=== PATIENT | female | born 1975 | race Hispanic/Latino ===

== ENCOUNTER 2018-12-22 23:51 | Emergency (ER) | payer BC, OTHER ==
[2018-12-23] MEDS ORDERED: ONDANSETRON HCL 4 MG/2 ML VIAL ONE (00:16)
[2018-12-23] MEDS ORDERED: MORPHINE SULFATE 4 MG/1ML SYG ONE (00:17)
[2018-12-23 00:22] LABS: BASOPHILS % (AUTO) 0.9 % (0.0-5.0); EOSINOPHILS % (AUTO) 2.7 % (0.0-8.0); HEMATOCRIT 37.6 % (36-48); LYMPHOCYTES % (AUTO) 27.9 % (21.0-51.0); MEAN CORPUSCULAR HEMOGLOBIN 32.8 pg (27.0-33.0); MEAN CORPUSCULAR HGB CONC 34.7 g/dL (32.0-36.0); MEAN CORPUSCULAR VOLUME 94.3 fL (79-99); MONOCYTES % (AUTO) 7.7 % (3.0-13.0); NEUTROPHILS % (AUTO) 60.8 % (40.0-77.0); PLATELET COUNT (AUTO) 253 K/uL (130-400); RED BLOOD CELL COUNT(AUTO) 3.99 MIL/uL (4.00-5.50); RED CELL DISTRIBUTION WIDTH 12.5 % (11.0-15.5); WHITE BLOOD COUNT (AUTO) 10.6 K/uL (4.8-10.8)
[2018-12-23 00:23] LABS: APPEARANCE,URINE Cloudy (CLEAR); BILIRUBIN,URINE Negative (NEGATIVE); COLOR,URINE Yellow (YELLOW); GLUCOSE, URINE (UA) Negative (NEGATIVE); KETONES,URINE Negative (NEGATIVE); LEUKOCYTE ESTERASE ,URINE Small (NEGATIVE); NITRATE,URINE Negative (NEGATIVE); OCCULT BLOOD,URINE Small (NEGATIVE); PH,URINE 7.5 (5.0-8.0); PROTEIN,URINE Negative (NEGATIVE)
[2018-12-23 00:40] LABS: CREATININE 0.8 mg/dL (0.5-1.5); POTASSIUM 3.9 mmol/L (3.5-5.1)
[2018-12-23] MEDS ORDERED: SODIUM CHLORIDE 0.9% 1000ML 1,000 ML IV ONE (00:44)
[2018-12-23 00:56] LABS: ALBUMIN 3.6 g/dL (3.5-5.0); BILIRUBIN,TOTAL 0.3 mg/dL (0.2-1.0); TOTAL PROTEIN, SERUM 7.2 g/dL (6.0-8.3)
[2018-12-23 01:25] LABS: BACTERIA,URINE Moderate /HPF (None Seen); RBC,URINE 0-1 /HPF (0-1)
[2018-12-23] MEDS ORDERED: KETOROLAC TROMETHAMINE 30MG/ML ONE (01:46)
== END 2018-12-23 03:32 | disposition home or self-care (01) ==
LOC: EDH 23:51
DX: N20.0 Calculus of kidney (principal); Z90.49 Acquired absence of other specified parts of digestive tract; Z90.710 Acquired absence of both cervix and uterus
CPT/HCPCS: 36415; 71045; 74176; 80053; 81001; 82550; 83690; 84484; 85025; 93005; 96374; 96375; 99285; J1885; J2270; J2405; J7030

== ENCOUNTER 2018-12-25 21:20 | Inpatient (IN) | payer BC ==
[~2018-12-25] VITALS: Ht 157.5 cm; Wt 93.8 kg
[2018-12-25] MEDS ORDERED: ONDANSETRON HCL 4 MG/2 ML VIAL ONE (22:11)
[2018-12-25] MEDS ORDERED: KETOROLAC TROMETHAMINE 30MG/ML ONE (22:11)
[2018-12-25] MEDS ORDERED: MORPHINE SULFATE 4 MG/1ML SYG ONE (22:11)
[2018-12-25 22:28] LABS: BASOPHILS % (AUTO) 0.3 % (0.0-5.0); EOSINOPHILS % (AUTO) 1.1 % (0.0-8.0); HEMATOCRIT 37.2 % (36-48); LYMPHOCYTES % (AUTO) 16.2 % (21.0-51.0); MEAN CORPUSCULAR HEMOGLOBIN 32.7 pg (27.0-33.0); MEAN CORPUSCULAR HGB CONC 35.1 g/dL (32.0-36.0); MEAN CORPUSCULAR VOLUME 93.4 fL (79-99); NEUTROPHILS % (AUTO) 76.4 % (40.0-77.0); PLATELET COUNT (AUTO) 249 K/uL (130-400); RED BLOOD CELL COUNT(AUTO) 3.98 MIL/uL (4.00-5.50); RED CELL DISTRIBUTION WIDTH 12.9 % (11.0-15.5); WHITE BLOOD COUNT (AUTO) 11.3 K/uL (4.8-10.8)
[2018-12-25 22:30] LABS: CREATININE 0.8 mg/dL (0.5-1.5); POTASSIUM 4.1 mmol/L (3.5-5.1)
[2018-12-25 22:35] LABS: ALBUMIN 3.7 g/dL (3.5-5.0); BILIRUBIN,TOTAL 0.5 mg/dL (0.2-1.0); TOTAL PROTEIN, SERUM 7.3 g/dL (6.0-8.3)
[2018-12-25 22:36] LABS: APPEARANCE,URINE Clear (CLEAR); BILIRUBIN,URINE Negative (NEGATIVE); COLOR,URINE Yellow (YELLOW); GLUCOSE, URINE (UA) Negative (NEGATIVE); KETONES,URINE Negative (NEGATIVE); LEUKOCYTE ESTERASE ,URINE Negative (NEGATIVE); NITRATE,URINE Negative (NEGATIVE); OCCULT BLOOD,URINE Small (NEGATIVE); PH,URINE 6.5 (5.0-8.0); PROTEIN,URINE Negative (NEGATIVE); UROBILINOGEN,URINE 0.2 mg/dL (0.2-1.0)
[2018-12-25 22:49] LABS: BACTERIA,URINE None Seen /HPF (None Seen); RBC,URINE 0-1 /HPF (0-1); WBC,URINE None Seen /HPF (0-1)
[2018-12-26] VITALS (26 sets, daily range): BP systolic 119–149; BP diastolic 67–96
[2018-12-26] MEDS ORDERED: MORPHINE SULFATE 2 MG/ML 1ML SYG IV PRN (00:15)
[2018-12-26] MEDS ORDERED: ONDANSETRON HCL 4 MG/2 ML VIAL IV PRN (00:15)
[2018-12-26] MEDS: SODIUM CHLORIDE 0.9% 1000ML 1,000 ML IV SCH ×4 (00:30→23:59)
[2018-12-26] MEDS ORDERED: CEFTRIAXONE SODIUM 1 GM ONE (00:34)
[2018-12-26] MEDS ORDERED: SODIUM CHLORIDE 0.9% 1000ML 1,000 ML IV ONE (00:35)
[2018-12-26] MEDS ORDERED: SODIUM CHLORIDE 0.9% 50 ML IV ONE (00:35)
[2018-12-26] MEDS ORDERED: KETOROLAC TROMETHAMINE 15MG/ML ONE (00:53)
[2018-12-26] MEDS ORDERED: ONDANSETRON HCL 4 MG/2 ML VIAL ONE ×2 (00:53→20:06)
[2018-12-26] MEDS ORDERED: DiphenhydrAMINE HCL 50 MG/ML VIAL IV SCH (02:15)
[2018-12-26] MEDS ORDERED: FAMOTIDINE/PF 20 MG/2 ML VIAL IV ONE ×2 (02:34→02:45)
[2018-12-26] MEDS ORDERED: DiphenhydrAMINE HCL 50 MG/ML VIAL ONE (02:34)
[2018-12-26] MEDS ORDERED: TAMS-1 PO (03:00)
[2018-12-26] MEDS ORDERED: ONDA4TAB4 PO (03:00)
[2018-12-26 06:43] LABS: BASOPHILS % (AUTO) 0.4 % (0.0-5.0); EOSINOPHILS % (AUTO) 2.1 % (0.0-8.0); HEMATOCRIT 33.8 % (36-48); MEAN CORPUSCULAR HEMOGLOBIN 33.4 pg (27.0-33.0); MEAN CORPUSCULAR HGB CONC 35.3 g/dL (32.0-36.0); MEAN CORPUSCULAR VOLUME 94.6 fL (79-99); MONOCYTES % (AUTO) 7.5 % (3.0-13.0); PLATELET COUNT (AUTO) 234 K/uL (130-400); RED BLOOD CELL COUNT(AUTO) 3.57 MIL/uL (4.00-5.50); RED CELL DISTRIBUTION WIDTH 13.1 % (11.0-15.5); WHITE BLOOD COUNT (AUTO) 9.9 K/uL (4.8-10.8)
[2018-12-26 06:57] LABS: ALBUMIN 3.1 g/dL (3.5-5.0); BILIRUBIN,TOTAL 0.5 mg/dL (0.2-1.0); CREATININE 0.8 mg/dL (0.5-1.5); POTASSIUM 3.3 mmol/L (3.5-5.1); TOTAL PROTEIN, SERUM 6.1 g/dL (6.0-8.3)
[2018-12-26 06:58] LABS: INR 1.05 (0.85-1.15)
[2018-12-26] MEDS: KETOROLAC TROMETHAMINE 15MG/ML IV PRN ×2 (07:36→22:06)
[2018-12-26] MEDS: FAMOTIDINE/PF 20 MG/2 ML VIAL IV SCH ×2 (08:48→22:05)
--- NOTE | 2018-12-26 11:23 | NUR ---
INITIAL MET W PATIENT, ALONE, AAOX3, W DR. NATE DOHERTY AT SIDE; GAVE PLAN OF CARE PT STATES SHE IS INDP, EMPLOYED, NO DME, FIRST TIME EVERY W KIDNEY STONES PAIN BETTER CONTROLLED NOW. PENDING RE EVAL OF CALCULUS POSITION AND VISIT BY DR. MARVIN ORTIZ DC IF STONE HAS PASSED DCP HOME, SPOUSE TO TRANSPORT Addendum: 12/26/18 at 1127 by ROCHELLE BRIGHT RN CM Amended: Links added.
[2018-12-26] MEDS: CEFTRIAXONE SODIUM 1 GM IVP SCH ×2 (12:01→23:59)
[2018-12-26] MEDS: DiphenhydrAMINE HCL 50 MG/ML VIAL IV PRN ×2 (17:37→23:59)
[2018-12-26] MEDS ORDERED: PROPOFOL 10 MG/ML 20ML VIAL IV ONE (19:45)
[2018-12-26] MEDS ORDERED: FENTANYL CITRATE PF 50 MCG/1 ML 2ML VIAL ONE (19:45)
[2018-12-26] MEDS ORDERED: MIDAZOLAM HCL 1 MG/ML 2ML VIAL ONE (19:45)
[2018-12-26] MEDS ORDERED: LIDOCAINE PF 2% 5ML ABBOJECT ONE (19:45)
[2018-12-26] MEDS ORDERED: IOHEXOL-350 50ML VIAL IV ONE (20:04)
[2018-12-26] MEDS ORDERED: DEXAMETHASONE SOD PHOSPHATE 10MG/ML 1ML VIAL ONE (20:06)
--- NOTE | 2018-12-26 21:21 | NUR ---
LITHOTRIPSY Received report from ANNAMARIE Guerra. Reports that patient is stable and patient did not need stent placement; MD Michaud was able to remove the stone. Patient will arrive to floor with a 16 fr hall catheter and may be discontinued in am. As per report, MD Michaud states that patient may be discharge on her standpoint. Vital signs: BP= 144/77, HR= 73, R= 19, T=97.7, and O2Sat= 98% in room air. Patient may have regular diet when arriving to floor. Will follow orders and continue to monitor patient.
[2018-12-26] MEDS: PHENAZOPYRIDINE HCL 200 MG TABLET PO SCH (22:05)
[2018-12-27] MEDS ORDERED: KETOROLAC TROMETHAMINE 30MG/ML ONE (00:29)
[2018-12-27] MEDS: KETOROLAC TROMETHAMINE 30MG/ML IV PRN ×2 (00:33→06:16)
[2018-12-27 04:00] VITALS: BP 120/72
[2018-12-27] MEDS: SODIUM CHLORIDE 0.9% 1000ML 1,000 ML IV SCH (05:55)
[2018-12-27 08:00] VITALS: BP 147/83
[2018-12-27] MEDS: PHENAZOPYRIDINE HCL 200 MG TABLET PO SCH (09:38)
[2018-12-27] MEDS: FAMOTIDINE/PF 20 MG/2 ML VIAL IV SCH (09:38)
[2018-12-27] MEDS ORDERED: POTASSIUM CHLORIDE 20 MEQ ERTAB PO SCH (10:30)
[2018-12-27 11:49] VITALS: BP 148/82
[2018-12-27] MEDS: CEFTRIAXONE SODIUM 1 GM IVP SCH (12:11)
--- NOTE | 2018-12-27 13:54 | NUR ---
DIET EDUCATION MCKAYLA provided Kidney Stone Nutrition Therapy Diet education. Pt pending Kidney stone source results. RD reviewed reference materials with Pt. Pt verbalized understanding. Pt pending D/C as per RN. Addendum: 12/27/18 at [address] RD Amended: Links added.
--- NOTE | 2018-12-27 14:34 | NUR ---
PT D/C HOME Pt d/c home safely, d/c instruction provided with diet education, PIV d/c without complication, pt verbalized understanding of d/c instructions, follow up appointment made for pt, all questions and concerns addressed. Pt taken down by w/c by COMMUNITY DEVELOPMENT AIDE.
[2018-12-27] MEDS ORDERED: FAMOTIDINE 20MG TAB 20 MG TAB PO SCH (21:00)
== END 2018-12-27 13:45 | disposition home or self-care (01) | DRG 670 ==
LOC: EDH 21:20 → EDHIP 12-26 00:13 → 3DH 12-26 00:34
PROVIDERS: ADMIT Internal Medicine; ATTEND Internal Medicine
PROC: 0TC78ZZ Extirpation of Matter from Left Ureter, Via Natural or Artificial Opening Endoscopic (ICD-10-PCS; principal; 2018-12-26 19:50)
PROC: BT141ZZ Fluoroscopy of Kidneys, Ureters and Bladder using Low Osmolar Contrast (ICD-10-PCS; 2018-12-26 19:50)
PROC: 0T9B80Z Drainage of Bladder with Drainage Device, Via Natural or Artificial Opening Endoscopic (ICD-10-PCS; 2018-12-26 19:50)
DX: N13.2 Hydronephrosis with renal and ureteral calculous obstruction (principal); D72.829 Elevated white blood cell count, unspecified; J45.909 Unspecified asthma, uncomplicated; R03.0 Elevated blood-pressure reading, without diagnosis of hypertension; L40.9 Psoriasis, unspecified; K21.9 Gastro-esophageal reflux disease without esophagitis; K76.0 Fatty (change of) liver, not elsewhere classified; Z87.442 Personal history of urinary calculi; Z90.711 Acquired absence of uterus with remaining cervical stump; Z98.891 History of uterine scar from previous surgery; Z88.6 Allergy status to analgesic agent; Z91.041 Radiographic dye allergy status
CPT/HCPCS: 36415; 74420; 76770; 80053; 81001; 81025; 82360; 82948; 85025; 85610; 85730; A4344; C1758; C1769; G0378; J0696; J1100; J1200; J1885; J2001; J2250; J2270; J2405; J2704; J3010; J3490; J7030; Q9967

== ENCOUNTER → 2019-07-11 | Outpatient (CLI) | payer BC ==
[~2019-07-11] MED LIST: ONDA4TAB4 PO
== END | disposition home or self-care (01) ==
LOC: RAH 11:12
PROVIDERS: ATTEND Urology
DX: N13.30 Unspecified hydronephrosis (principal)
CPT/HCPCS: 76770

== ENCOUNTER 2022-03-07 02:48 | Emergency (ER) | payer BC ==
[~2022-03-07] VITALS: Ht 157.5 cm; Wt 91.6 kg
[2022-03-07 03:27] LABS: BASOPHILS % (AUTO) 0.2 % (0.0-5.0); EOSINOPHILS % (AUTO) 1.2 % (0.0-8.0); HEMATOCRIT 42.8 % (36-48); LYMPHOCYTES % (AUTO) 14.2 % (21.0-51.0); MEAN CORPUSCULAR HEMOGLOBIN 31.6 pg (27.0-33.0); MEAN CORPUSCULAR VOLUME 90.3 fL (79-99); NEUTROPHILS % (AUTO) 80.2 % (40.0-77.0); PLATELET COUNT (AUTO) 276 K/uL (130-400); RED BLOOD CELL COUNT(AUTO) 4.74 MIL/uL (4.00-5.50); WHITE BLOOD COUNT (AUTO) 10.4 K/uL (4.8-10.8)
[2022-03-07 03:28] LABS: APPEARANCE,URINE CLOUDY (CLEAR); BILIRUBIN,URINE NEGATIVE (NEGATIVE); COLOR,URINE YELLOW (YELLOW); GLUCOSE, URINE (UA) NEGATIVE (NEGATIVE); KETONES,URINE NEGATIVE (NEGATIVE); LEUKOCYTE ESTERASE ,URINE 25 Leu/uL (NEGATIVE); NITRATE,URINE NEGATIVE (NEGATIVE); OCCULT BLOOD,URINE NEGATIVE (NEGATIVE); PH,URINE 5.5 (5.0-8.0); PROTEIN,URINE 50 mg/dL (NEGATIVE)
[2022-03-07 03:31] LABS: BACTERIA,URINE RARE /HPF (None Seen); MUCUS,URINE MANY LPF (None Seen); SQUAMOUS EPITHELIAL CELL,UR MOD /HPF (0-2)
[2022-03-07 03:36] LABS: CREATININE 0.7 mg/dL (0.5-1.5); POTASSIUM 3.6 mmol/L (3.5-5.1)
[2022-03-07 03:40] LABS: ALBUMIN 4.4 g/dL (3.5-5.0)
[2022-03-07] MEDS ORDERED: KETOROLAC 30MG VIAL (30MG/ML) ONE (04:17)
[2022-03-07] MEDS ORDERED: KETOROLAC 30MG VIAL (30MG/ML) IVP ONE (04:30)
[2022-03-07] MEDS ORDERED: MORPHINE 4 MG SYG IVP ONE (05:30)
[2022-03-07] MEDS ORDERED: ONDANSETRON 4MG INJ ONE (05:35)
[2022-03-07] MEDS ORDERED: ONDANSETRON 4MG INJ IVP ONE (06:00)
[2022-03-07] MEDS ORDERED: 0.9%NACL 1000ML 1,000 ML IV ONE ×2 (06:00→08:30)
[2022-03-07] MEDS ORDERED: HYDROMORPHONE 0.5 MG SYG (0.5MG/0.5ML) ONE (06:43)
[2022-03-07] MEDS ORDERED: PANTOPRAZOLE 40 MG/VIAL ONE (06:43)
[2022-03-07] MEDS ORDERED: HYDROMORPHONE 0.5 MG SYG (0.5MG/0.5ML) IVP ONE (07:00)
[2022-03-07] MEDS ORDERED: PANTOPRAZOLE 40 MG/VIAL IVP ONE (07:00)
[2022-03-07] MEDS ORDERED: LIDOCAINE HCL 2% VISCOUS 15 ML UDCUP PO ONE (08:30)
[2022-03-07] MEDS ORDERED: MAG/ALUM/SIMETH 30 ML UDCUP PO ONE (08:30)
[2022-03-07 08:35] VITALS: BP 125/74
[2022-03-07] MEDS ORDERED: NAPR375T6 PO (09:41)
[2022-03-07] MEDS ORDERED: ONDA4TAB10 PO (09:41)
== END 2022-03-07 09:50 | disposition home or self-care (01) ==
LOC: EDH 02:48
DX: N20.0 Calculus of kidney (principal); R10.11 Right upper quadrant pain; Z90.49 Acquired absence of other specified parts of digestive tract; Z20.822 Contact with and (suspected) exposure to COVID-19
CPT/HCPCS: 99285; 74176; 96374; 96375; 96361; 87635; 80053; 83690; 85025; 87088; 87804 ×2; 81001; 81025; 36415; 93005; C9803; J7030 ×2; J2405; J2270; J1885; C9113; J1170